=== PATIENT | female | born 1970 | race Caucasian/White ===

== ENCOUNTER 2019-10-13 00:23 | Emergency (ER) | payer MEDICAID, OTHER ==
[~2019-10-13] VITALS: Ht 160 cm; Wt 68.0 kg
[2019-10-13 00:49] VITALS: BP 121/64
== END 2019-10-13 02:36 | disposition home or self-care (01) ==
LOC: ER 00:49
DX: F12.988 Cannabis use, unspecified with other cannabis-induced disorder (principal); R03.0 Elevated blood-pressure reading, without diagnosis of hypertension
CPT/HCPCS: 99283